=== PATIENT | female | born 1995 | race African-American/Black ===

== ENCOUNTER 2025-06-08 06:55 | Emergency (ER) | payer OTHER, SELFPAY ==
[2025-06-08 07:00] VITALS: BP 145/82; PULSE 81; TEMP 37.1; O2SAT 100; BMI 26.6
--- NOTE | 2025-06-08 07:16 | ED.GENADUL1 ---
HPI HPI - General Adult General Chief complaint: Abdominal Pain Stated complaint: DIARRHEA Time Seen by Provider: 06/08/25 07:05 Source: patient Mode of arrival: walk-in Limitations: no limitations History of Present Illness HPI narrative: 29-year-old female presents to the emergency department for diarrhea. It began about 11:00 yesterday morning after running a half marathon. No vomiting. She states it is watery and she has had it numerous times. No known ill contacts and no previous history of intestinal issues. Related Data Allergies Allergy/AdvReac Type Severity Reaction Status Date / Time No Known Drug Allergies Allergy Verified 06/08/25 07:00 Review of Systems ROS Narrative A ten point review of systems is negative except as noted above. PFSH PFSH Social History Little interest or pleasure in doing things: not at all Feeling down, depressed, or hopeless: not at all Exam Narrative Exam Narrative: Nurses note and vital signs reviewed and patient is not hypoxic. General:The patient appears in no acute distress Skin:Warm, dry, no pallor noted.There is no rash noted. Head:Normocephalic, atraumatic Eye: Conjunctiva mildly injected Ears, Nose, Mouth, and Throat: oral mucosa is moist. Nares patent. Cardiovascular:Regular Rate and Rhythm Respiratory:Patient is in no distress, no accessory muscle use, lungs are clear to auscultation, no wheezing, rales or rhonchi Back:non-tender GI: No distention or masses. Minimal tenderness present diffusely. Musculoskeletal: The patient has no evidence of calf tenderness, no pitting edema, symmetrical pulses noted bilaterally Neurological:A&O, normal speech Psychiatric:Cooperative Constitutional Vital Signs, click to edit/add: Last Vital Signs Temp 98.8 F 06/08/25 07:00 Pulse 81 06/08/25 07:00 Resp 18 06/08/25 07:00 BP 145/82 H 06/08/25 07:00 Pulse Ox 100 06/08/25 07:00 O2 Del Method Room Air 06/08/25 07:00 Course Vital Signs Vital signs: Vital Signs Temperature 98.8 F 06/08/25 07:00 Pulse Rate 81 06/08/25 07:00 Respiratory Rate 18 06/08/25 07:00 Blood Pressure 145/82 H 06/08/25 07:00 Pulse Oximetry 100 06/08/25 07:00 Oxygen Delivery Method Room Air 06/08/25 07:00 Temperature 98.8 F 06/08/25 07:00 Pulse Rate 81 06/08/25 07:00 Respiratory Rate 18 06/08/25 07:00 Blood Pressure 145/82 H 06/08/25 07:00 Pulse Oximetry 100 06/08/25 07:00 Oxygen Delivery Method Room Air 06/08/25 07:00 Medical Decision Making MDM Narrative Medical decision making narrative: Blood work is normal. She was given IV fluids. She provided a stool specimen for culture and the result is pending. Treatment diagnosis and follow-up were discussed with the patient. Differential Diagnosis Differential Diagnosis: Viral gastroenteritis, bacterial gastroenteritis, dehydration Lab Data Lab results reviewed: Yes I reviewed the patient's lab results Labs: Lab Results 06/08/25 Range/Units 07:23 WBC 8.7 (4.0-11.0) 10^3/uL RBC 4.93 (4.20-5.40) 10^6/uL Hgb 13.6 (12.0-16.0) g/dL Hct 40.9 (36.0-48.0) % MCV 83.0 (81.0-99.0) fL MCH 27.6 (26.7-34.0) pg MCHC 33.3 (29.9-35.2) g/dL RDW 14.2 (11.0-15.0) % Plt Count 200 (150-450) 10^3/uL MPV 10.3 (9.5-13.5) fL Neut % (Auto) 78.6 H (43.0-75.0) % Lymph % (Auto) 14.1 L (20.5-60.0) % [place] % (Auto) 6.2 (1.7-12.0) % Eos % (Auto) 0.7 L (0.9-7.0) % Baso % (Auto) 0.2 (0.2-2.0) % Neut # (Auto) 6.9 H (1.4-6.5) 10^3/uL Lymph # (Auto) 1.2 (1.2-3.8) 10^3/uL [place] # (Auto) 0.5 (0.3-0.8) 10^3/uL Eos # (Auto) 0.1 (0.0-0.7) 10^3/uL Baso # (Auto) 0.0 (0.0-0.1) 10^3/uL Abs Immat Gran (auto) 0.02 (0.00-0.03) 10^3/uL Imm/Tot Granulo (auto) 0.2 (0.0-0.5) % Sodium 141 (136-145) mmol/L Potassium 4.4 (3.5-5.1) mmol/L Chloride 106 (98-107) mmol/L Carbon Dioxide 22.7 (21.0-32.0) mmol/L Anion Gap 16.7 BUN 11.0 (7.0-18.0) mg/dL Creatinine 0.87 (0.55-1.02) mg/dL Est GFR ( Amer) >60 (>=60 mL/min/1.73m^2) Est GFR (Non-Af Amer) >60 (>=60 mL/min/1.73m^2) BUN/Creatinine Ratio 12.6 Glucose 79 (74-106) mg/dL Calcium 8.9 (8.5-10.1) mg/dL Serum HCG, Qual Negative (NEGATIVE) Discharge Plan Discharge Chief Complaint: Abdominal Pain Clinical Impression: Diarrhea Patient Disposition: Home, Self-Care Time of Disposition Decision: 08:35 Condition: Good Mode of Transportation: Private Vehicle Print Language: Portuguese Instructions: Acute Diarrhea (ED) Referrals: Physician,Non-Staff, [Primary Care Provider] - 1 week
[2025-06-08] MEDS: 0.9 % SODIUM CHLORIDE 1,000 ML 1000 ML IV (07:36)
[2025-06-08 07:38] LABS: Hematocrit 40.9 % (36.0-48.0); Hemoglobin 13.6 g/dL (12.0-16.0); Immature Granulocytes Abs Auto 0.02 10^3/uL (0.00-0.03); Immature Granulocytes Pct Auto 0.2 % (0.0-0.5); Lymphocytes Absolute Auto 1.2 10^3/uL (1.2-3.8); Mean Corpuscular HGB Conc 33.3 g/dL (29.9-35.2); Mean Corpuscular Hemoglobin 27.6 pg (26.7-34.0); Mean Corpuscular Volume 83.0 fL (81.0-99.0); Platelet Count 200 10^3/uL (150-450); Red Blood Count 4.93 10^6/uL (4.20-5.40); White Blood Count 8.7 10^3/uL (4.0-11.0)
[2025-06-08 07:46] LABS: Anion Gap 16.7; Blood Urea Nitrogen 11.0 mg/dL (7.0-18.0); Calcium 8.9 mg/dL (8.5-10.1); Carbon Dioxide 22.7 mmol/L (21.0-32.0); Chloride 106 mmol/L (98-107); Estimated GFR (African America >60 (>=60 mL/min/1.73m^2); Estimated GFR (Non-African Ame >60 (>=60 mL/min/1.73m^2); Glucose 79 mg/dL (74-106); Potassium 4.4 mmol/L (3.5-5.1); Sodium 141 mmol/L (136-145)
== END 2025-06-08 08:51 | disposition home or self-care (01) ==
PROVIDERS: Emergency Provider Emergency Medicine
DX: R19.7 Diarrhea, unspecified (principal)
CPT/HCPCS: 36415; 80048; 84703; 85025; 87045; 87046; 87427; 96360; 99284